=== PATIENT | female | born 1985 | race Caucasian/White ===

== ENCOUNTER 2020-07-31 08:14 | Emergency (ER) | payer MEDICAID ==
[~2020-07-31] VITALS: Ht 170.2 cm; Wt 117.9 kg
[~2020-07-31 08:14] MED LIST: PREN-129 OR
[2020-07-31 08:23] VITALS: BP 120/87
[2020-07-31] MEDS ORDERED: HYDROcodone-ACET 10/325MG TAB PO ONE (09:15)
== END 2020-07-31 10:01 | disposition home or self-care (01) ==
LOC: ER 08:14
DX: S82.54XA Nondisplaced fracture of medial malleolus of right tibia, initial encounter for closed fracture (principal); S93.401A Sprain of unspecified ligament of right ankle, initial encounter; X50.1XXA Overexertion from prolonged static or awkward postures, initial encounter; Y93.89 Activity, other specified; Y92.89 Other specified places as the place of occurrence of the external cause; Y99.8 Other external cause status
CPT/HCPCS: 29515; 73610

== ENCOUNTER 2024-05-06 12:57 | Emergency (ER) | payer MEDICAID ==
[~2024-05-06] VITALS: Ht 170.2 cm; Wt 72.6 kg
[2024-05-06] MEDS: LIDOCAINE 1% HCL (LOCAL ANESTH.) INJ 20ML MDV ID ONE (16:04)
[2024-05-06] MEDS ORDERED: CEPH500C PO (16:05)
[2024-05-06] MEDS: NEOMYCIN-BACITRACIN-POLYM UNITDOSE PKG TOP OINT TOP ONE (16:05)
[2024-05-06 16:08] VITALS: BP 124/87; PULSE 78; RESP 17; TEMP 98.9; O2SAT 98
== END 2024-05-06 16:09 | disposition home or self-care (01) ==
LOC: ER 12:57
DX: S61.214A Laceration without foreign body of right ring finger without damage to nail, initial encounter (principal); F32.A Depression, unspecified; F17.210 Nicotine dependence, cigarettes, uncomplicated; F12.10 Cannabis abuse, uncomplicated; F15.10 Other stimulant abuse, uncomplicated; W25.XXXA Contact with sharp glass, initial encounter; Y93.E9 Activity, other interior property and clothing maintenance; Y92.89 Other specified places as the place of occurrence of the external cause; Y99.8 Other external cause status
CPT/HCPCS: 73130; 99283; J2001